=== PATIENT | female | born 1935 | race American Indian/Alaskan Native ===

== ENCOUNTER 2016-05-17 22:52 | Inpatient (IN) | payer MEDICARE ==
[2016-05-17] MEDS ORDERED: KETALAR IV ONE (23:37)
[2016-05-17] MEDS ORDERED: ARTIFICIAL TEARS OPHTH OINT OU PRN (23:37)
[2016-05-17] MEDS ORDERED: ZEMURON IV ONE ×2 (23:37→23:53)
[2016-05-17] MEDS ORDERED: SUBLIMAZE IV ONE (23:37)
[2016-05-17] MEDS ORDERED: VASELINE LIP THERAPY TP PRN (23:37)
[2016-05-17] MEDS ORDERED: PROVENTIL IH ONE (23:40)
[2016-05-17] MEDS ORDERED: NACL 0.9% 1000 ML 1,000 ML IV ONE (23:40)
[2016-05-17] MEDS ORDERED: ATROVENT IH ONE (23:40)
--- NOTE | 2016-05-17 23:43 | Emergency Department Report ---
ED General Adult HPI - General Chief complaint: Dyspnea/Respdistress Stated complaint: VALERIO Time Seen by Provider: 05/17/16 23:22 Source: patient, RN notes reviewed Mode of arrival: Stretcher Limitations: Altered Mental Status, Physical Limitation - History of Present Illness Initial comments: This is an 80-year-old female, previously unknown to me. Has a past medical history of hypertension, dementia, possible CVA, left-sided breast cancer. As per family, has not received chemotherapy or radiation therapy. Patient brought to the hospital by EMS for weakness, shortness of breath, lethargy. Symptoms present since Wednesday. They're constant. Have no exacerbating or relieving factors. No fevers or chills. As per family, patient has not clarified advanced directives. However, patient' s daughter has given verbal permission for intubation. The patient was found to be severely tachypneic, altered, with a pulse ox of 81 % on room air, with markedly effort of breathing, and accessory muscle use. -: Gradual Severity scale (0 -10): 0 Consistency: constant Improves with: none Worsens with: none Associated Symptoms: confusion, loss of appetite, shortness of breath, weakness - Related Data Allergies Allergy/AdvReac Type Severity Reaction Status Date / Time No Known Allergies Allergy Verified 05/17/16 23:53 ED Review of Systems ROS: Stated complaint: VALERIO Other details as noted in HPI Comment: Unobtainable due to pts medical conditions Constitutional: malaise Eyes: as per HPI ENT: as per HPI Respiratory: see HPI, shortness of breath Cardiovascular: as per HPI Endocrine: see HPI Gastrointestinal: as per HPI Genitourinary: as per HPI Musculoskeletal: as per HPI Skin: as per HPI Neurological: weakness Psychiatric: as per HPI ED Past Medical Hx - Past Medical History Previous Medical History?: Yes Hx Hypertension: Yes Hx CVA: Yes Additional medical history: left breast ca - Surgical History Additional Surgical History: knee surgery - Social History Smoking Status: Former Smoker Substance Use Type: None ED Physical Exam - General Limitations: Altered Mental Status, Physical Limitation General appearance: lethargic - Head Head exam: Present: atraumatic, normocephalic - Eye Eye exam: Present: normal appearance, PERRL - ENT ENT exam: Present: mucous membranes dry - Neck Neck exam: Present: normal inspection, full ROM. Absent: tenderness, meningismus - Respiratory Respiratory exam: Present: respiratory distress, wheezes, rhonchi, accessory muscle use, other (left lateral chest wall demonstrates a macerated/indurated/ erythematous tissue, consistent with known history of chronic breast cancer.). Absent: normal lung sounds bilaterally - Cardiovascular Cardiovascular Exam: Present: normal rhythm, tachycardia, normal heart sounds. Absent: systolic murmur, diastolic murmur, rubs, gallop - GI/Abdominal GI/Abdominal exam: Present: soft, normal bowel sounds. Absent: distended, tenderness, guarding, pulsatile mass - Extremities Exam Extremities exam: Present: normal inspection, normal capillary refill. Absent: tenderness, pedal edema, joint swelling, calf tenderness - Back Exam Back exam: Present: normal inspection. Absent: tenderness, CVA tenderness (R), CVA tenderness (L), muscle spasm, paraspinal tenderness, vertebral tenderness - Neurological Exam Neurological exam: Present: altered, other (breathing spontaneously. Eyes open spontaneously. She is not following commands.) - Psychiatric Psychiatric exam: Present: flat affect - Skin Skin exam: Present: warm, dry, intact, normal color. Absent: rash ED Course Vital Signs 05/17/16 23:05 Temperature 98.7 F Pulse Rate 131 H Respiratory 28 H Rate Blood Pressure 104/65 Blood Pressure 104/65 [Right] O2 Sat by Pulse 99 Oximetry - Reevaluation(s) Reevaluation #1: 05/17/16 23:43 Differential diagnosis: Pneumonia, bronchitis, breast cancer, worsening, respiratory failure, pulmonary embolus Assessment and plan: 80-year-old female with impending respiratory failure. She is going to be intubated. Family has given permission. Reevaluation #2: 05/18/16 01:31 case d/w Dr Neal, the [facility] physician, who accepts patient to her service Reevaluation #3: 05/18/16 01:54 case discussed with pulmonology Dr. Lo. He is currently speaking to respiratory therapy to make adjustments on the ventilator. He is also going to follow as a consult. - Central Line Placement Right IJ Consent Obtained: emergent situation Time Out Performed: Yes Patient Placed on Monitor/Pulse Ox: Yes MD Prep: mask, gown, gloves Central Line Prep: Chlorhexidine scrub Ultrasound Used for Placement: Yes Central Line Lumen Inserted: triple Bloods Obtained for Lab: No Central Line Position: good blood return, all ports aspirated, flus, sutured in place with 2-0 Dressing Applied: Tegaderm Patient Tolerated Procedure: well Complications: hematoma at puncture site - Intubation Time Out Performed: Yes Sedative: Ketamine Mg Given: 100 Paralytic: Rocuronium Mg Given: 100 Laryngoscope: Shyla Size: 3 Assist Device Used: Bougie ET Tube Size: 7.5 Tube Secured Location: teeth Tube Placement Confirmation: visualized tube passing t, equal breath sounds bilat, no breath sounds over epi, confirmation by capnometr Patient Tolerated Procedure: well Intubation Complications: none Additional Comments: patient was placed on a nasal cannula going at 15 L/m. Also received bag-valve mask ventilation. Induced with ketamine 100 mg, and paralyzed with rocuroonium , 100 mg. placed a 3 curved Shyla blade, and suctioned out the oropharynx, which had copious secretions pooling in the including food products. The vocal cords were then directly visualized, and the 7-5 endotracheal tube was advanced without difficulty. ED Medical Decision Making - Lab Data Vital Signs 05/17/16 23:05 Temperature 98.7 F Pulse Rate 131 H Respiratory 28 H Rate Blood Pressure 104/65 Blood Pressure 104/65 [Right] O2 Sat by Pulse 99 Oximetry - EKG Data When compared to previous EKG there are: previous EKG unavailable 05/18/16 01:22 Sinus tachycardia, 155 bpm, left axis deviation, QTC 555 ms, nonspecific T-wave abnormality, right bundle branch block, abnormal EKG. Not morphologically consistent with STEMI.(Prior to obtaining this EKG, the patient was quite hypotensive with a blood pressure in the 40s. She was given a dose of cardiac epinephrine, and subsequently resulted in this rhythm.) Repeat EKG is pending. EKG #2: Sinus tachycardia, 140 bpm, left axis deviation, right bundle branch block, Q waves noted in the inferior leads, abnormal EKG, not morphologically consistent with STEMI. - Radiology Data Radiology results: report reviewed, image reviewed X-ray chest #1 demonstrates multilobar pneumonia, calcified aortic knob, diffuse disease. DJD is noted. Status post intubation, demonstrates appropriate placement of endotracheal tube , approximately 8 mm from the yemi (we will withdraw this 2 cm), appropriate position of central line, no obvious pneumothorax. Critical Care Time: Yes Critical care time in (mins) excluding proc time.: 35 Critical care attestation.: If time is entered above; I have spent that time in minutes in the direct care of this critically ill patient, excluding procedure time. Critical Care Time: critical care times include multiple bedside re=evaluations, interpretation of lab studies and radiology studies and discussion with multiple services, including critial care/pulmonary, hospital medicine ED Disposition Clinical Impression: Respiratory failure Qualifiers: Chronicity: acute Respiratory failure complication: hypercapnia Qualified Code( s): J96.02 - Acute respiratory failure with hypercapnia Disposition: OP ADMITTED IP TO THIS HOSP Is pt being admited?: Yes Condition: Critical Referrals: PRIMARY CARE,MD [Primary Care Provider] - 3-5 Days
[2016-05-17] MEDS ORDERED: fentaNYL DRIP Premix 2,000 MCG/100 ML BAG IV SCH (23:45)
[2016-05-17] MEDS ORDERED: NACL 0.9% 500 ML IV SCH (23:45)
[2016-05-17] MEDS ORDERED: KETALAR ONE (23:53)
[2016-05-18] MEDS ORDERED: ZOSYN/NS 4.5GM/100ML 4.5 GM/100 ML VIAL IV ONE (00:08)
[2016-05-18] MEDS ORDERED: ADRENALIN ONE ×2 (00:10→11:20)
[2016-05-18] MEDS ORDERED: NACL ONE (00:36)
[2016-05-18] MEDS ORDERED: NACL 0.9% 1000 ML IV ONE ×2 (01:00→02:30)
--- NOTE | 2016-05-18 01:32 | XRay Report ---
FINAL REPORT EXAM: XR CHEST 1V AP HISTORY: ett and central line placement TECHNIQUE: AP portable view of the chest. PRIORS: None. FINDINGS: There is an endotracheal tube in place with the tip approximately 8 millimeters above the yemi. It should be withdrawn approximately 3-5 cm. There is a right-sided central venous catheter with the tip in the superior vena cava. There is atherosclerosis in the thoracic aorta. Otherwise the cardiomediastinal silhouette appears normal. There are diffuse bilateral mixed airspace and interstitial infiltrates and a more consolidative infiltrate in the left lung base. The bones and soft tissues are unremarkable. IMPRESSION: 1. The endotracheal tube tip is near the yemi. Recommend withdrawal approximately 3-5 cm. 2. Diffuse bilateral mixed airspace and interstitial infiltrates most likely due to pneumonia, less likely pulmonary edema. There is also a more consolidative infiltrate in the left lower lung more suspicious for pneumonia. I gave a verbal report by phone to Dr. Cox at 1:27 a.m. eastern standard time.
[2016-05-18 01:40] LABS: ISTAT Base Excess -3; ISTAT HCO3 25.6; ISTAT PCO2 72.9 (35-45); ISTAT PH 7.154 (7.35-7.45); ISTAT PO2 342 (80-105); ISTAT SO2 100; ISTAT TCO2 28
[2016-05-18] MEDS: LEVOPHED DRIP 4 MG/NS 250 ML 4 MG/250 ML BAG IV SCH ×2 (01:52→09:50)
[2016-05-18 01:55] LABS: Hematocrit 33.7 % (30.3-42.9); Hemoglobin 10.6 gm/dl (10.1-14.3); Mean Corpuscular HGB Conc 31 % (30-34); Mean Corpuscular Hemoglobin 27 pg (28-32); Mean Corpuscular Volume 87 fl (79-97); Platelet Count 355 K/mm3 (140-440); Red Blood Count 3.87 M/mm3 (3.65-5.03); Red Cell Distribution Width 15.2 % (13.2-15.2); White Blood Count 11.3 K/mm3 (4.5-11.0)
[2016-05-18 02:29] LABS: Mucus,Urine FEW /HPF; RBC,Urine < 1.0 /HPF (0.0-6.0)
[2016-05-18] MEDS ORDERED: PROVENTIL IH ONE (02:33)
[2016-05-18] MEDS ORDERED: MILK OF MAGNESIA PO PRN (02:35)
[2016-05-18] MEDS ORDERED: DULCOLAX PR PRN (02:35)
[2016-05-18] MEDS ORDERED: ZOFRAN IV PRN (02:35)
[2016-05-18] MEDS ORDERED: TYLENOL PR PRN (02:35)
[2016-05-18] MEDS ORDERED: ALUM-MAG HYDROX-SIMETH 200-200-20MG/5ML PO PRN (02:35)
[2016-05-18 02:43] LABS: Chloride 120.1 mmol/L (98-107); Potassium 3.8 mmol/L (3.6-5.0)
--- NOTE | 2016-05-18 02:46 | History and Physical Report ---
History of Present Illness Date of examination: 05/18/16 History of present illness: 80-year-old woman with a history of hypertension, dementia, CVA with aphasia, breast cancer comes emergency room because she was noted to have labored breathing today. In the emergency room she was hypoxic, tachypneic and using accessory muscles to breathe. She was intubated. She was also noted to be hypotensive and was started on Levophed drip, IV fluids given. Review of system is unobtainable, history is per the family at bedside PAST SURGICAL HISTORY: Knee surgery SOCIAL HISTORY: Denies alcohol, tobacco, drugs FAMILY HISTORY: Hypertension Medications and Allergies Allergies Allergy/AdvReac Type Severity Reaction Status Date / Time No Known Allergies Allergy Verified 05/17/16 23:53 Active Meds: Active Medications Acetaminophen (Tylenol) 650 mg WI Q6H PRN PRN Reason: Pain MILD(1-3)/Fever >100.5/RUIZ Al Hydrox/Mg Hydrox/Simethicone (Alum-Mag Hydrox-Simeth [id number]/5ml) 30 ml PO Q4H PRN PRN Reason: Indigestion Bisacodyl (Dulcolax) 10 mg WI QDAY PRN PRN Reason: constipation unrelieved by MOM Enoxaparin Sodium (Lovenox) 30 mg SUB-Q QDAY MARK Hydrophilic Ointment (Vaseline Lip Therapy) 1 applic TP Q2HR PRN PRN Reason: Dry Lips Fentanyl Citrate (Fentanyl Drip Premix) 2,000 mcg in 100 mls @ 5.5 mls/hr IV TITR MARK; 1 MCG/KG/HR PRN Reason: Protocol Norepinephrine (Levophed Drip 4 Mg/Ns 250 Ml) 4 mg in 250 mls @ 7.5 mls/hr IV TITR MARK; 2 MCG/MIN PRN Reason: Protocol Last Admin: 05/18/16 01:52 Dose: 7.5 mls/hr Azithromycin 500 mg/ Sodium (Chloride) mls @ 250 mls/hr IV Q24HR MARK Ceftriaxone Sodium (Rocephin/Ns 1 Gm/50 Ml) mls @ 100 mls/hr IV Q24HR MARK PRN Reason: Protocol Magnesium Hydroxide (Milk Of Magnesia) 30 ml PO Q4H PRN PRN Reason: Constipation Multi-Ingred Cream/Lotion/Oil/Oint (Artificial Tears Ophth Oint) 1 applic OU Q4HR PRN PRN Reason: Dry Eye(s) Ondansetron HCl (Zofran) 4 mg IV Q8H PRN PRN Reason: N/V unrelieved by Reglan Sodium Chloride (Nacl 0.9% 500 Ml) 1 ml IV DIRECT MARK Exam - Physical Exam Narrative exam: Gen. appearance: Patient lying in bed, no apparent distress HEENT: Normocephalic, atraumatic, pupils equally round and reactive to light, unable to do extraocular movement , and no sclericterus,. No JVD or thyromegaly or nodule,neck supple, no carotid bruit ,mucous membranes moist, ET tube in place, unable to examine oral cavity Heart: S1, S2, regular rate and rhythm Lungs: Clear to auscultation bilaterally, breathing comfortable Abdomen: Positive bowel sounds, nontender, nondistended, no organomegaly Extremity: No edema, cyanosis, clubbing Skin: No rash, nodules, warm, dry Neuro: Sedated - Constitutional Vitals: Temp Pulse Resp BP Pulse Ox 98.7 F 139 H 25 H 104/65 99 05/17/16 23:05 05/18/16 02:38 05/18/16 02:38 05/17/16 23:05 05/17/16 23:05 Results - Labs CBC & Chem 7: 05/18/16 01:30 05/18/16 01:30 Labs: Abnormal lab results 05/18/16 05/18/16 Range/Units 01:23 01:30 WBC 11.3 H (4.5-11.0) K/mm3 MCH 27 L (28-32) pg POC ABG pH 7.154 L (7.35-7.45) POC ABG pCO2 72.9 H (35-45) POC ABG pO2 342 H (80-105) - Imaging and Cardiology Chest x-ray: report reviewed Assessment and Plan Septic shock Pneumonia Acute renal failure Hypernatremia abnormal cardiac enzymes Dementia History of CVA Admits medicine Start IV fluid, continue levophed drip Start IV Rocephin, azithromycin Monitor sodium level, kidney function, check ultrasound of kidneys Check cardiac enzymes, echo Consult critical care Start DVT prophylaxis
[2016-05-18 02:47] LABS: Alanine Aminotransferase 21 units/L (7-56); Albumin 2.6 g/dL (3.9-5); Alkaline Phosphatase 102 units/L (35-129); Bilirubin,Total < 0.2 mg/dL (0.1-1.2); Creatine Kinase 134 units/L (30-135); Magnesium 2.1 mg/dL (1.7-2.3); Total Protein 5.2 g/dL (6.3-8.2)
[2016-05-18 02:49] LABS: Bilirubin,Urine Negative (Negative); Blood,Urine Negative (Negative); Ketones,Urine Trace mg/dL (Negative); Leukocyte Esterase,Urine Trace (Negative); Nitrite,Urine Negative (Negative); Protein,Urine <30 mg dL mg/dL (Negative); Urobilinogen,Urine < 2.0 mg/dL (<2.0)
[2016-05-18 02:55] LABS: Anisocytosis 1+; Basophils % (Manual) 0 % (0.0-1.8); Bilirubin,Direct < 0.2 mg/dL (0-0.2); Blastocytes % (Manual) 0 %; Eosinophils % (Manual) 0 % (0.0-4.3)
[2016-05-18 02:56] LABS: Diff Status Complete; Elliptocytes 1+; Platelet Estimate Consistent w Auto
[2016-05-18 03:11] LABS: INR 1.17 (0.87-1.13)
[2016-05-18 03:12] LABS: Partial Thromboplastin Time 22.4 Sec. (24.2-36.6)
[2016-05-18 03:45] LABS: ISTAT Base Excess -13; ISTAT HCO3 17.1; ISTAT PCO2 61.6 (35-45); ISTAT PH 7.052 (7.35-7.45); ISTAT PO2 51 (80-105); ISTAT SO2 69; ISTAT TCO2 19
[2016-05-18 03:46] LABS: Cholesterol 115 mg/dL (50-199); HDL Cholesterol 53 mg/dL (40-59); LDL Cholesterol,Direct 36 mg/dL (50-130); Triglycerides 133 mg/dL (2-149)
[2016-05-18] MEDS ORDERED: D5/0.45NS 1,000 ML IV SCH (04:00)
[2016-05-18] MEDS ORDERED: SODIUM BICARBONATE 150 MEQ in D5W 1,000 ML IV SCH ×2 (04:00→12:00)
[2016-05-18 05:40] LABS: Creatine Kinase MB 4.8 ng/mL (0.0-4.0)
[2016-05-18 06:15] LABS: ISTAT Base Excess -11; ISTAT HCO3 19.4; ISTAT PCO2 72.1 (35-45); ISTAT PH 7.038 (7.35-7.45); ISTAT PO2 68 (80-105); ISTAT SO2 82; ISTAT TCO2 22
--- NOTE | 2016-05-18 08:48 | XRay Report ---
PORTABLE CHEST INDICATION: Dyspnea. COMPARISON: 04/04/2010 FINDINGS: Portable, frontal chest radiograph demonstrates poorer inspiration with grossly stable, slight exaggerated cardiomediastinal silhouette. Aortic knob calcifications. New, diffuse bilateral pulmonary infiltrates, greatest in the left lower to mid lung zone measuring approximately 7 x 8 cm. Left hemidiaphragm may be slightly obscured laterally. Right hemidiaphragm again slightly elevated. EKG leads. Demineralized bones. CONCLUSION: New bilateral pulmonary infiltrates, greatest in the left lung inferiorly, as described. Please correlate. Thank you for the opportunity to participate in this patient's care.
--- NOTE | 2016-05-18 09:10 | XRay Report ---
AP CHEST HISTORY: Followup respiratory failure. FINDINGS: There are extensive bilateral perihilar infiltrates since earlier today at 0048 hours. This probably represents pulmonary edema. No large pleural effusion or pneumothorax. Heart size appears stable and within normal limits. Lines and support devices remain in good position. IMPRESSION: Bilateral pulmonary edema has developed since earlier today.
[2016-05-18] MEDS ORDERED: PEPCID IV SCH (10:00)
[2016-05-18] MEDS ORDERED: ZITHROMAX 500 MG in NACL 0.9% 250ML 250 ML IV SCH (10:00)
[2016-05-18] MEDS ORDERED: LOVENOX SUB-Q SCH ×2 (10:00)
[2016-05-18] MEDS ORDERED: ROCEPHIN/NS 1 GM/50 ML 1 GM/50 ML BAG IV SCH (10:00)
[2016-05-18 10:40] LABS: Creatine Kinase MB 4.5 ng/mL (0.0-4.0)
[2016-05-18] MEDS ORDERED: NACL 0.9% 1000 ML 1,000 ML ONE (11:12)
[2016-05-18] MEDS ORDERED: SODIUM BICARBONATE IV ONE ×3 (11:20→12:00)
[2016-05-18 12:00] VITALS: BP 42/26
[2016-05-18] MEDS ORDERED: NEO-SYNEPHRINE 100 MG in NACL 0.9% 90 ML IV SCH (12:00)
[2016-05-18] MEDS ORDERED: PITRESSin 20 UNIT in NACL 0.9% 100 ML IV SCH (12:00)
[2016-05-18] MEDS ORDERED: LEVOPHED 8 MG in NACL 0.9% 250ML 242 ML IV SCH (12:00)
--- NOTE | 2016-05-18 12:28 | Consultation ---
History of Present Illness Consult date: 05/18/16 Requesting physician: AUGUSTA SHAH Reason for consult: other (Acute respiratory failure) History of present illness: 80 yo presents from home with lethargy, hypoxia, hypotension. Unable to complain of anything on arrival, just tachypneic with severe increased WOB so required intubation. Levophed started + empiric ABX. Unfortunately, this AM developed CP arrest (PEA w/ 2 periods of Vfib). She underwent ACLS protocol and received 3 amps of Epi, 4 amps of bicarb (see ABGs), and NS wide-open, and 2 defibrillations. Ultimately ROSC achieved but now on Vasopressin as well. Unable to oxgenate her on ACVC, ACPC, or APRV. Active Medications Acetaminophen (Tylenol) 650 mg RI Q6H PRN PRN Reason: Pain MILD(1-3)/Fever >100.5/RUIZ Al Hydrox/Mg Hydrox/Simethicone (Alum-Mag Hydrox-Simeth [phone]/5ml) 30 ml PO Q4H PRN PRN Reason: Indigestion Bisacodyl (Dulcolax) 10 mg RI QDAY PRN PRN Reason: constipation unrelieved by MOM Enoxaparin Sodium (Lovenox) 40 mg SUB-Q QDAY@1000 [facility] Last Admin: 05/18/16 09:49 Dose: 40 mg Famotidine (Pepcid) 20 mg IV BID [facility] Last Admin: 05/18/16 09:49 Dose: 20 mg Hydrocortisone Sodium Succinate (Solu-Cortef) 100 mg IV Q8HR [facility] Hydrophilic Ointment (Vaseline Lip Therapy) 1 applic TP Q2HR PRN PRN Reason: Dry Lips Fentanyl Citrate (Fentanyl Drip Premix) 2,000 mcg in 100 mls @ 5.5 mls/hr IV TITR MARK; 1 MCG/KG/HR PRN Reason: Protocol Azithromycin 500 mg/ Sodium (Chloride) 250 mls @ 250 mls/hr IV Q24HR [facility] Last Admin: 05/18/16 10:19 Dose: 250 mls/hr Dextrose/Sodium Chloride (D5/0.45ns) 1,000 mls @ 150 mls/hr IV DIRECT MARK Last Admin: 05/18/16 05:00 Dose: 150 mls/hr Vasopressin 20 unit/ Sodium (Chloride) 101 mls @ 9.09 mls/hr IV TITR MARK; 0.03 UNITS/MIN PRN Reason: Protocol Sodium Bicarbonate 150 meq/ (Dextrose) 1,150 mls @ 100 mls/hr IV DIRECT MARK Phenylephrine HCl 100 mg/ (Sodium Chloride) 100 mls @ 3 mls/hr IV TITR MARK; 50 MCG/MIN PRN Reason: Protocol Norepinephrine 8 mg/ Sodium (Chloride) 250 mls @ 3.75 mls/hr IV TITR MARK; 2 MCG /MIN PRN Reason: Protocol Piperacillin Sod/Tazobactam Sod (Zosyn/Ns 4.5gm/100ml) 4.5 gm in 100 mls @ 200 mls/hr IV Q8HR MARK Vancomycin HCl 1,750 mg/ (Sodium Chloride) 500 mls @ 333.333 mls/hr IV Q24HR MARK Magnesium Hydroxide (Milk Of Magnesia) 30 ml PO Q4H PRN PRN Reason: Constipation Multi-Ingred Cream/Lotion/Oil/Oint (Artificial Tears Ophth Oint) 1 applic OU Q4HR PRN PRN Reason: Dry Eye(s) Ondansetron HCl (Zofran) 4 mg IV Q8H PRN PRN Reason: N/V unrelieved by Reglan Sodium Chloride (Nacl 0.9% 500 Ml) 1 ml IV DIRECT MARK Past History Past Medical History: other (Breast cancer, Dementia) Past Surgical History: Other (Unknown) Social history: full code, other (Lives with family). denies: smoking, alcohol abuse, prescription drug abuse, IV drug use Family history: other (No pulm issues reported) Medications and Allergies Allergies Allergy/AdvReac Type Severity Reaction Status Date / Time No Known Allergies Allergy Verified 05/17/16 23:53 Active Meds: Active Medications Acetaminophen (Tylenol) 650 mg RI Q6H PRN PRN Reason: Pain MILD(1-3)/Fever >100.5/RUIZ Al Hydrox/Mg Hydrox/Simethicone (Alum-Mag Hydrox-Simeth [phone]/5ml) 30 ml PO Q4H PRN PRN Reason: Indigestion Bisacodyl (Dulcolax) 10 mg RI QDAY PRN PRN Reason: constipation unrelieved by MOM Enoxaparin Sodium (Lovenox) 40 mg SUB-Q QDAY@1000 [facility] Last Admin: 05/18/16 09:49 Dose: 40 mg Famotidine (Pepcid) 20 mg IV BID [facility] Last Admin: 05/18/16 09:49 Dose: 20 mg Hydrocortisone Sodium Succinate (Solu-Cortef) 100 mg IV Q8HR [facility] Hydrophilic Ointment (Vaseline Lip Therapy) 1 applic TP Q2HR PRN PRN Reason: Dry Lips Fentanyl Citrate (Fentanyl Drip Premix) 2,000 mcg in 100 mls @ 5.5 mls/hr IV TITR MARK; 1 MCG/KG/HR PRN Reason: Protocol Azithromycin 500 mg/ Sodium (Chloride) 250 mls @ 250 mls/hr IV Q24HR [facility] Last Admin: 05/18/16 10:19 Dose: 250 mls/hr Dextrose/Sodium Chloride (D5/0.45ns) 1,000 mls @ 150 mls/hr IV DIRECT MARK Last Admin: 05/18/16 05:00 Dose: 150 mls/hr Vasopressin 20 unit/ Sodium (Chloride) 101 mls @ 9.09 mls/hr IV TITR MARK; 0.03 UNITS/MIN PRN Reason: Protocol Sodium Bicarbonate 150 meq/ (Dextrose) 1,150 mls @ 100 mls/hr IV DIRECT MARK Phenylephrine HCl 100 mg/ (Sodium Chloride) 100 mls @ 3 mls/hr IV TITR MARK; 50 MCG/MIN PRN Reason: Protocol Norepinephrine 8 mg/ Sodium (Chloride) 250 mls @ 3.75 mls/hr IV TITR MARK; 2 MCG /MIN PRN Reason: Protocol Piperacillin Sod/Tazobactam Sod (Zosyn/Ns 4.5gm/100ml) 4.5 gm in 100 mls @ 200 mls/hr IV Q8HR MARK Vancomycin HCl 1,750 mg/ (Sodium Chloride) 500 mls @ 333.333 mls/hr IV Q24HR MARK Magnesium Hydroxide (Milk Of Magnesia) 30 ml PO Q4H PRN PRN Reason: Constipation Multi-Ingred Cream/Lotion/Oil/Oint (Artificial Tears Ophth Oint) 1 applic OU Q4HR PRN PRN Reason: Dry Eye(s) Ondansetron HCl (Zofran) 4 mg IV Q8H PRN PRN Reason: N/V unrelieved by Reglan Sodium Chloride (Nacl 0.9% 500 Ml) 1 ml IV DIRECT MARK Review of Systems ROS unobtainable: due to endotracheal tube Physical Examination Vital signs: Vital Signs Temp Pulse Resp BP Pulse Ox 98.7 F 135 H 24 104/65 99 05/17/16 23:05 05/17/16 23:05 05/17/16 23:05 05/17/16 23:05 05/17/16 23:05 General appearance: other (unresponsive on vent, critically ill, intubated) Eyes: non-icteric ENT: oropharynx moist Neck: supple Effort: mildly labored Ascultation: Bilateral: other (coarse equal BS bilaterally) Cardiovascular: regular rate and rhythm (no mrg) Gastrointestinal: normoactive bowel sounds, soft, non-tender, other (distended) Extremities: no cyanosis, no edema, pink and warm unable to assess (due to critical illness) other (unable to assess) Results - Laboratory Findings CBC and BMP: 05/18/16 01:30 05/18/16 01:30 ABG POC ABG pH 7.038 (7.35-7.45) L 05/18/16 05:34 POC ABG pCO2 72.1 (35-45) H 05/18/16 05:34 POC ABG pO2 68 (80-105) L 05/18/16 05:34 POC ABG HCO3 19.4 05/18/16 05:34 POC ABG Total CO2 22 05/18/16 05:34 POC ABG O2 Sat 82 05/18/16 05:34 PT/INR, D-dimer PT 14.8 Sec. (12.2-14.9) 05/18/16 01:30 INR 1.17 (0.87-1.13) H 05/18/16 01:30 Abnormal lab findings: Abnormal Labs 05/18/16 05/18/16 05/18/16 03:38 04:55 05:34 POC ABG pH 7.052 L 7.038 L POC ABG pCO2 61.6 H 72.1 H POC ABG pO2 51 L 68 L POC Glucose Total Creatine Kinase 137 H CK-MB (CK-2) 4.8 H Troponin T 0.061 H 05/18/16 05/18/16 10:00 11:37 POC ABG pH POC ABG pCO2 POC ABG pO2 POC Glucose 389 H Total Creatine Kinase CK-MB (CK-2) 4.5 H Troponin T 0.063 H - Diagnostic Findings Chest x-ray: report reviewed, image reviewed (severe bilateral infiltrates) Assessment and Plan Imp: 1. Bilateral infiltrates, suspect aspiration pneumonia with ARDS; also suspect underlying metastatic breast cancer 2. Severe sepsis w/ septic shock 3. CLARA/hypernatremia 4. Metabolic/toxic encephalopathy overlying dementia 5. Breast cancer 6. Lactic acidosis 7. Acute respiratory failure, hypoxia Rec: 1. Vanco/Zosyn/Azithro 2. Levophed/Vasopressin + add Neosynephrine 3. Solucortef 100mg IV m3ectht 4. Sodium bicarb drip 5. DVT/GI PPx 6. Wound RN consult (note per RN she had sacral decubitus and heel ulcer on arrival to the hospital) 7. Echo pending 8. Prognosis is dismal and this was explained to family (daughter, POA); they are considering making her AND which is appropriate (baseline quality of life poor) Plan of care reviewed w/ family, they understand/agree CCT 31 minutes
--- NOTE | 2016-05-18 12:50 | Admit Criteria Form ---
Admission Criteria Documentation: RESPIRATORY FAILURE GRG Clinical Indications for Admission to Inpatient Care (Place 'X' for any and all applicable criteria): Hospital admission is needed for appropriate care of the patient because of acute respiratory failure or insufficiency as indicated by ANY ONE of the following(1)(2)(3)(4)(5)(6)(7)(8): [X]I. Mechanical ventilation needed (acute invasive or noninvasive) [X]II. Severe ventilation deficit as indicated by ANY ONE of the following (9) [X]a) Respiratory acidosis (pH less than 7.32 and partial pressure of carbon dioxide greater than 40 mm Hg (5.3 kPa)) [X]b) Partial pressure of carbon dioxide greater than 44 mm Hg (5.9 kPa ) (new) [ ]c) Airflow measurements less than 25% of predicted (eg, peak expiratory flow rate less than 100 L/minute) [ ]d) Forced vital capacity less than 15 mL/kg of ideal body weight, or 50% decrease in vital capacity from baseline [ ]III. Noncardiac pulmonary edema not resolving with rapid emergency treatment (8) [X]IV. Severe respiratory distress as indicated by ANY ONE of the following: []a) Severe tachypnea (respiratory rate greater than 30, greater than 45 for 6-month-old, greater than 60 for ) [X]b) Severe hypoxemia (partial pressure of oxygen less than 50 mm Hg ( 6.7 kPa) on greater than 50% oxygen or partial pressure of oxygen to FIO2 ratio less than 200) [X]c) Mental status deterioration from respiratory disease [X]V. Airway obstruction or inadequate protection [A](10)(11) The original [employer] content created by [employer] has been revised. The portions of the content which have been revised are identified through the use of italic text or in bold, and [employer] has neither reviewed nor approved the modified material. All other unmodified content is copyright [employer]. Please see references footnoted in the original [employer] edition 2016 Admission Criteria Met: Yes
[2016-05-18] MEDS ORDERED: VANCOMYCIN VIAL 1,750 MG in NACL 0.9% 500 ML 500 ML IV SCH (13:00)
[2016-05-18] MEDS ORDERED: ZOSYN/NS 4.5GM/100ML 4.5 GM/100 ML VIAL IV SCH (14:00)
== END 2016-05-18 13:08 | DRG 871 ==
LOC: ED 22:52 → CC1 05-18 02:35
PROVIDERS: ADMIT Internal Medicine; ATTEND Internal Medicine
PROC: 05HM33Z Insertion of Infusion Device into Right Internal Jugular Vein, Percutaneous Approach (ICD-10-PCS; 2016-05-17)
PROC: 5A1935Z Respiratory Ventilation, Less than 24 Consecutive Hours (ICD-10-PCS; principal; 2016-05-18)
PROC: 0BH17EZ Insertion of Endotracheal Airway into Trachea, Via Natural or Artificial Opening (ICD-10-PCS; 2016-05-18)
PROC: 4A033R1 Measurement of Arterial Saturation, Peripheral, Percutaneous Approach (ICD-10-PCS; 2016-05-18)
PROC: 5A2204Z Restoration of Cardiac Rhythm, Single (ICD-10-PCS; 2016-05-18)
DX: A41.9 Sepsis, unspecified organism (principal); J96.01 Acute respiratory failure with hypoxia; R65.21 Severe sepsis with septic shock; J69.0 Pneumonitis due to inhalation of food and vomit; G92 Toxic encephalopathy; N17.9 Acute kidney failure, unspecified; E87.0 Hyperosmolality and hypernatremia; I10 Essential (primary) hypertension; F03.90 Unspecified dementia, unspecified severity, without behavioral disturbance, psychotic disturbance, mood disturbance, and anxiety; Z85.3 Personal history of malignant neoplasm of breast; Z86.73 Personal history of transient ischemic attack (TIA), and cerebral infarction without residual deficits; Z87.891 Personal history of nicotine dependence; Z82.49 Family history of ischemic heart disease and other diseases of the circulatory system; Z66 Do not resuscitate; I46.9 Cardiac arrest, cause unspecified; L89.159 Pressure ulcer of sacral region, unspecified stage; L89.609 Pressure ulcer of unspecified heel, unspecified stage
CPT/HCPCS: 36415; 36600; 71010; 80048; 80061; 80074; 81001; 82140; 82550; 82553; 82803; 82962; 83735; 84484; 85007; 85025; 85610; 85730; 87040; 93005; 93010; 93306; 94002; 94003; 94640; 96365; 96375; J0171; J0456; J0696; J1650; J2370; J2543; J2930; J3370; J7030; J7040; J7050; J7070